=== PATIENT | male | born 1950 | race Caucasian/White ===

== ENCOUNTER 2023-08-14 16:59 | Emergency (ER) | payer OTHER ==
[~2023-08-14] VITALS: Ht 182.8 cm; Wt 88.5 kg
== END 2023-08-14 20:39 | disposition home or self-care (01) ==
LOC: ED 16:59
DX: S00.83XA Contusion of other part of head, initial encounter (principal); Z88.2 Allergy status to sulfonamides; Z88.8 Allergy status to other drugs, medicaments and biological substances; W19.XXXA Unspecified fall, initial encounter; Y93.89 Activity, other specified; Y92.89 Other specified places as the place of occurrence of the external cause; Y99.8 Other external cause status